=== PATIENT | female | born 2000 | race Caucasian/White ===

== ENCOUNTER 2023-01-20 12:11 | Emergency (ER) | payer OTHER, SELFPAY ==
[2023-01-20] VITALS (25 sets, daily range): BP systolic 102–125; BP diastolic 57–81; PULSE 67–102; RESP 18–20; TEMP 36.4; O2SAT 98–100; BMI 36.5
--- NOTE | 2023-01-20 12:49 | ED.GENADULT ---
HPI - General Adult General Chief complaint: Weakness Stated complaint: Low K Time Seen by Provider: 01/20/23 12:12 Source: patient Mode of arrival: ambulatory Limitations: no limitations History of Present Illness HPI narrative: 22-year-old female, otherwise healthy presents to the emergency department with at least a 2 month history of dysphagia. She notes difficulty swallowing though really not pain. Initially, symptoms started with a feeling that she could not burp. Then, it was difficulty swallowing meat and other thick foods. Now, she cannot get down even soft foods and has difficulty with liquids at times. She gives a story that is consistent with partially chewed mucousy regurgitation but no bilious vomiting. She is not nauseated. She has lost probably 40-50 lb over the last few months due to the dysphagia. She was evaluated at her primary care clinic earlier today and hypokalemia which is consistent with poor nutritional status. Thyroid testing was normal, no anemia. She is having normal stools. There is no family history of any GI cancers. She has not been on any antacids. She has not had any prior endoscopy or colonoscopy. No gynecological changes or blood in her stools. Her menses are irregular, denies any chance of . Not currently in a relationship. No prior history of similar symptoms prior to a few months ago. She does endorse reflux symptoms at night. No anticoagulant use or aspirin. Past medical history benign, no major long-term health problems. No prior surgeries, no prior anesthesia. No long-term medications, no allergies. Socially she is a nonsmoker and denies alcohol intake. Family history negative for anesthesia complications. ROS notable for the GI symptoms as above, otherwise denies times 12 systems besides some mild generalized weakness over the last few days. This is likely attributed to her hypokalemia. Related Data Previous Rx's Medication Instructions Recorded omeprazole 20 mg capsule,delayed 20 mg PO DAILY #30 caps 01/20/23 release potassium chloride 20 mEq oral 20 meq PO BID #14 ea 01/20/23 packet Allergies Allergy/AdvReac Type Severity Reaction Status Date / Time No Known Drug Allergies Allergy Verified 01/20/23 12:16 [facility] Social History Smoking Status: Never smoker Do you use any of these nicotine containing products: None Second hand tobacco smoke exposure: No How often do you have a drink containing alcohol: never How often do you have six or more drinks on one occasion: Never AUDIT-C Alcohol total score: 0 Non-prescribed substance use: denies use service: No Exam Const: Vital Signs, click to edit/add: Vital Signs - 24 hr 01/20/23 12:16 01/20/23 15:14 01/20/23 15:23 Temperature 97.6 F Pulse Rate 77 Pulse Rate [Pulse Oximeter] 86 91 Respiratory Rate 20 18 Blood Pressure Blood Pressure [Ri ght Forearm] 125/81 104/65 Pulse Oximetry 98 100 100 Oxygen Delivery Me thod Room Air Room Air 01/20/23 15:30 01/20/23 15:35 01/20/23 15:45 Temperature Pulse Rate 80 89 75 Pulse Rate [Pulse Oximeter] Respiratory Rate Blood Pressure 120/71 Blood Pressure [Ri ght Forearm] Pulse Oximetry 100 100 100 Oxygen Delivery Me thod 01/20/23 16:00 01/20/23 16:03 01/20/23 16:15 Temperature Pulse Rate 69 71 71 Pulse Rate [Pulse Oximeter] Respiratory Rate Blood Pressure 119/72 Blood Pressure [Ri ght Forearm] Pulse Oximetry 100 100 100 Oxygen Delivery Me thod 01/20/23 16:30 01/20/23 16:32 01/20/23 16:35 Temperature Pulse Rate 76 86 76 Pulse Rate [Pulse Oximeter] Respiratory Rate Blood Pressure 110/65 Blood Pressure [Ri ght Forearm] Pulse Oximetry 100 100 99 Oxygen Delivery Me thod 01/20/23 16:45 01/20/23 17:00 01/20/23 17:02 Temperature Pulse Rate 102 H 79 79 Pulse Rate [Pulse Oximeter] Respiratory Rate Blood Pressure 102/57 L Blood Pressure [Ri ght Forearm] Pulse Oximetry 100 100 100 Oxygen Delivery Me thod 01/20/23 17:15 01/20/23 17:30 01/20/23 17:32 Temperature Pulse Rate 72 68 75 Pulse Rate [Pulse Oximeter] Respiratory Rate Blood Pressure 109/58 L Blood Pressure [Ri ght Forearm] Pulse Oximetry 100 99 100 Oxygen Delivery Me thod 01/20/23 17:45 01/20/23 18:00 01/20/23 18:02 Temperature Pulse Rate 72 69 67 Pulse Rate [Pulse Oximeter] Respiratory Rate Blood Pressure 107/58 L Blood Pressure [Ri ght Forearm] Pulse Oximetry 100 100 100 Oxygen Delivery Me thod 01/20/23 18:15 01/20/23 18:30 01/20/23 18:33 Temperature Pulse Rate 74 72 71 Pulse Rate [Pulse Oximeter] Respiratory Rate Blood Pressure 109/61 Blood Pressure [Ri ght Forearm] Pulse Oximetry 100 100 100 Oxygen Delivery Me thod 01/20/23 18:45 Temperature Pulse Rate 75 Pulse Rate [Pulse Oximeter] Respiratory Rate Blood Pressure Blood Pressure [Ri ght Forearm] Pulse Oximetry 100 Oxygen Delivery Me thod Documenting provider has reviewed patient's vital signs: yes Common normals: no apparent distress General appearance: cooperative, comfortable and well kempt Other: Polite, no features of anxiety. Excellent historian. HENMT: Common normals: normocephalic and head/scalp atraumatic Head and scalp: normocephalic and atraumatic Face and sinus: normal facial exam Mouth: oral and palatal mucosa normal Throat: posterior oropharynx normal Eye: Common normals: conjunctivae normal General eye: normal appearance of both eyes Conjunctiva: conjunctiva(e) normal Neck & C-Spine: Common normals: full ROM, no lymphadenopathy and thyroid normal Thyroid: thyroid normal Resp: Common normals: normal respiratory effort, no use of accessory muscles and clear to auscultation bilaterally Effort & inspection: able to speak in complete sentences Auscultation: clear to auscultation bilaterally Cardio: Common normals: regular rate, regular rhythm, S1 normal heart sound and S2 normal heart sound Rate: regular rate Rhythm: regular rhythm Heart sounds: S1 normal and S2 normal GI: Common normals: Normal to inspection, nondistended, normoactive bowel sounds present, soft to palpation, no hepatosplenomegaly and no masses Palpation: soft and no hepatosplenomegaly Extremity: Common normals: normal to inspection, normal capillary refill and no pedal edema Neuro: Speech: speech normal Gait (neuro): normal gait Motor exam: strength 5/5 throughout and no movement abnormalities noted Psych: Appearance: well kempt Attitude: engaged Activity/motor behavior: appropriate eye contact Insight: insight good Judgement: judgment good Skin: Common normals: no rashes or lesions noted General skin exam: no rashes or lesions noted Course Vital Signs Vital signs: Initial Vital Signs Temperature 97.6 F 01/20/23 12:16 Temperature Source Temporal Artery Scan 01/20/23 12:16 Pulse Rate 86 01/20/23 12:16 Pulse Rhythm Regular 01/20/23 12:16 Respiratory Rate 20 01/20/23 12:16 Blood Pressure 125/81 01/20/23 12:16 Blood Pressure Mean 95 01/20/23 12:16 Blood Pressure Position Supine 01/20/23 12:16 Pulse Oximetry 98 01/20/23 12:16 Oxygen Delivery Method Room Air 01/20/23 12:16 Vital Signs Temperature 97.6 F 01/20/23 12:16 Pulse Rate 86 01/20/23 12:16 Respiratory Rate 20 01/20/23 12:16 Blood Pressure 125/81 01/20/23 12:16 Pulse Oximetry 98 01/20/23 12:16 Oxygen Delivery Method Room Air 01/20/23 12:16 Temperature 97.6 F 01/20/23 12:16 Pulse Rate 75 01/20/23 18:45 Respiratory Rate 18 01/20/23 15:14 Blood Pressure 109/61 01/20/23 18:33 Pulse Oximetry 100 01/20/23 18:45 Oxygen Delivery Method Room Air 01/20/23 15:14 Medical Decision Making MDM Narrative Medical decision making narrative: Low suspicion for malignancy, much more likely esophageal stricture versus obstruction from other means, likely underlying GERD. I do not think that this is an aura pharyngeal issue or neurological issue. Hypokalemia needs to be addressed as well. Will start with fluids and 40 mEq of IV potassium as well as 25 mEq of oral potassium. I was able to get hold of Dr. Roy who is doing endoscopies this afternoon and he is willing to add on her case today. She will be NPO, will plan to give her potassium afterwards. Will start 40 mg of IV Protonix and add a magnesium level to her previously drawn labs. After her endoscopy, she will come back to finish her fluids, take her oral potassium and recheck her blood levels. I would not want her to go home unless her potassium was above 3. She will need oral supplementation for further correction and follow-up labs. She will also need proton pump inhibitor therapy following discharge. Update: Patient has returned from endoscopy, awake alert and feeling well. Dr. Roy has discussed the findings, there is more of a focal looking stricture were concerning for achalasia. No signs of malignancy. Biopsies have been taken. Unfortunately, her fluids were stopped. She still has 4 more hours than of IV fluids prior to discharge. This was discussed with her. It is okay to try an oral challenge as well. She will need to take her oral potassium as well. She has already gotten her Protonix. She will need proton pump inhibitor at discharge. Dr. Roy says that she can follow up with him next week for biopsy results. Final update: Patient tolerated her chicken noodle soup, Jell-O with no difficulty, has been able to drink oral fluids, took her potassium well. She is finishing up her IV fluids and then will be ready for discharge with the plan as outlined above. Lab Data Labs: Lab Results 01/20/23 Range/Units 11:00 Magnesium 1.9 (1.5-2.6) mg/dL Discharge Plan Discharge Clinical Impression: Esophageal stricture Patient Disposition: Home w/ Parent or Adult Condition: Improved Instructions: Esophageal Stricture (ED) Additional Instructions: As we discussed, you have a tight band of scar tissue at the bottom part of your esophagus. This is why it is difficult for you to eat. The doctor took some biopsies that will give a some answers as to why this happened. These will be available in a week. We would like for you to schedule follow-up with Dr. Roy in the clinic. In the meantime, we want you to follow a soft and pureed diet for the next 4 days. These are things like applesauce, mashed potatoes with gravy. You can do any liquids, yogurt, pudding, Jell-O. After 4 days, you may move to more textured foods but you need to remember to chew them extremely well, pause at least 2 minutes between bites, and take at least 2 drinks of fluid in between each bite to allow things to wash through this stricture. Try to split your food into 5 heavy snacks versus small meals through the day rather than eating a lot at 1 sitting. We will start you on an antacid medicine which should promote healing of this stricture. He will take 1 pill once daily on an empty stomach and try to wait 30 minutes prior to eating to get maximum effect. We replaced her potassium through the IV and a little bit through your mouth. You will need to take potassium tablets twice daily for the next 7 days. The doctor will need to recheck your potassium at your follow-up visit next week also. Once you are eating well, your potassium will normalized on its own. Activity Level: No Restrictions Discharge Diet: Other Diet Detail: Soft and pureed diet for 4 days Prescriptions: New omeprazole 20 mg capsule,delayed release(DR/EC) 20 mg PO DAILY Qty: 30 2RF potassium chloride 20 mEq packet 20 meq PO BID Qty: 14 0RF Follow Up/Referrals: Provider,Not a Local [Primary Care Provider] - Stand Alone Forms: [employer] Info Instructions
[2023-01-20] MEDS: PANTOPRAZOLE SODIUM 40 MG INJ IVP (12:59)
[2023-01-20] MEDS: 0.9 % SODIUM CH + KCL 20 mEq/L 1,000 ML 500 ML IV ×2 (13:03→16:54)
[2023-01-20 13:07] LABS: Magnesium* 1.9 mg/dL (1.5-2.6)
--- NOTE | 2023-01-20 13:29 | ED.NURSE ---
Pt to endo via WC. Will return to ER after procedure.
[2023-01-20] MEDS: POTASSIUM BICARB 25 MEQ EFFERVESCENT TAB PO (15:26)
--- NOTE | 2023-01-20 15:36 | ED.NURSE ---
is able to drink po potassium. denies any pain. ivf with 20 kcl infusing as ordered.
--- NOTE | 2023-01-20 17:49 | ED.NURSE ---
has been able to take po well. no nausea/vomiting. did take chicken noodle soup. denies pain. mother at bs. ivf infusing.
== END 2023-01-20 19:07 | disposition home or self-care (01) ==
PROVIDERS: Emergency Provider Family Medicine
DX: K22.2 Esophageal obstruction (principal)
CPT/HCPCS: 36415; 43239; 83735; 84703; 88305; 96374; 99284; A9270; C9113; J2250; J3010

== ENCOUNTER 2023-03-09 09:54 | Outpatient (CLI) | payer SELFPAY ==
--- NOTE | 2023-03-09 10:15 | CRLHL7_ITS ---
For Patients: As a result of the Century Cures Act, medical imaging exams and procedure reports are released immediately into your electronic medical record. You may view this report before your referring provider. If you have questions, please contact your health care provider. Technique: Double-contrast upper GI performed after the uneventful administration of effervescent crystals and thick barium. Fluoroscopy time 36 seconds. Indication: cant keep solid or liquid down for 3 months r/o lower esophageal stricture Comparison: None. Findings: Severe narrowing of the distal esophagus noted with a thin line of barium extending into the stomach through the GE junction. The distal esophagus is distended up to approximately 4.6 cm. Residual food/fluid products also present. No mucosal irregularity or ulcer. The swallowing mechanism is normal. Impression: Severe distal esophageal stricture with near complete obstruction. Dictated by Naif Clayton MD @ 03/09/2023 11:04:58 AM (Electronically Signed)
== END 2023-03-09 09:55 | disposition home or self-care (01) ==
PROVIDERS: PCP Nurse Practitioner Family; Visit Provider Internal Medicine
DX: K22.2 Esophageal obstruction (principal)
CPT/HCPCS: 74246